=== PATIENT | male | born 1990 | race Two or more races ===

== ENCOUNTER 2017-01-06 01:21 | Emergency (ER) | payer OTHER ==
[2017-01-06 02:16] VITALS: BP 126/81
--- NOTE | 2017-01-06 02:48 | ED Physician Documentation ---
PD HPI SKIN - Stated complaint Stated Complaint: LT KNEE REDNESS,SWELLING - Chief complaint Chief Complaint: Ext Problem - History obtained from History obtained from: Patient - History of Present Illness Timing - onset: How many days ago (few) Timing - duration: Days (few) Timing - details: Gradual onset, Still present Location: LLE (anterior infrapatellar area.) Quality / character: Painful, Swelling, Draining (slight purulent drainage earlier today) Associated symptoms: No: Fever, Myalgias Similar symptoms before: Has not had sx before Recently seen: Not recently seen Review of Systems Constitutional: reports: Myalgias. denies: Fever, Chills GI: denies: Nausea, Vomiting, Diarrhea PD PAST MEDICAL HISTORY - Past Medical History Past Medical History: No Endocrine/Autoimmune: None - Past Surgical History Past Surgical History: No - Present Medications Home Medications: Ambulatory Orders Medication Instructions Recorded Confirmed Sulfamethox/Trimeth 800/160 1 each PO BID #14 tablet 01/06/17 [Bactrim Ds 800/160] - Allergies Allergies/Adverse Reactions: Allergies Allergy/AdvReac Type Severity Reaction Status Date / Time No Known Drug Allergies Allergy Verified 01/06/17 02:16 - Social History Does the pt smoke?: No Smoking Status: Never smoker Does the pt drink ETOH?: Yes Does the pt have substance abuse?: No - Immunizations Immunizations are current?: Yes - POLST Patient has POLST: No PD ED PE NORMAL - Vitals Vital signs reviewed: Yes - General General: Alert and oriented X 3, No acute distress, Well developed/nourished - Derm Derm: Normal color, Warm and dry - Extremities Extremities: Other (left knee infrapatellar with area of swelling, redness, and pointed pustule. No bursal nor joint effusion noted. Skin is very tender and with redness. ) Results - Vitals Vitals: Oxygen O2 Source Room air PD MEDICAL DECISION MAKING - ED course Complexity details: considered differential (appears infection. U/S bedside without fluid collection, so no I&D needed. No joint effusion. ), d/w patient Departure - Departure Disposition: 01 Home, Self Care Clinical Impression: Prepatellar abscess Condition: Stable Record reviewed to determine appropriate education?: Yes Instructions: ED Staph Infec Abx Tx Only Prescriptions: Sulfamethox/Trimeth 800/160 [Bactrim Ds 800/160] 1 each PO BID #14 tablet Comments: Warm towels or soaks to the infected area to 3 times a day. He can apply antibiotic ointment to the area after that. Tylenol or ibuprofen if needed for pain and add hydrocodone if needed for worse pain. This looks like a staph type infection and use Bactrim twice daily for a week until completely resolved. Recheck if not better over the next few days or sooner if worsening despite medication. Discharge Date/Time: 01/06/17 03:40
[2017-01-06] MEDS ORDERED: SULFAMETH/TRIMETH DS 800/160 MG TABLET PO STA (03:14)
[2017-01-06] MEDS ORDERED: HYDROcod/ACET 5/325 Prepack 6 PO ONE ×2 (03:14→03:31)
[2017-01-06] MEDS ORDERED: HYDROcod/ACETAM 5/325 MG TABLET PO STA (03:14)
[2017-01-06] MEDS ORDERED: SULFAMETH/TRIMETH DS 800/160 MG TABLET PO ONE (03:31)
[2017-01-06] MEDS ORDERED: HYDROcod/ACETAM 5/325 MG TABLET ONE (03:31)
== END 2017-01-06 03:40 | disposition home or self-care (01) ==
LOC: ED 01:21
DX: M79.1 Myalgia (principal); L02.416 Cutaneous abscess of left lower limb
CPT/HCPCS: 87070; 87077; 87181; 87205; 99283; A9270